=== PATIENT | female | born 1965 | race Caucasian/White ===

== ENCOUNTER 2022-02-12 12:33 | Outpatient (CLI) | payer BC, OTHER | END 2022-02-12 12:34 | disposition home or self-care (01) | LOC: TBSIIMAG 12:33 | PROVIDERS: ATTEND Neurological Surgery | DX: M50.121 Cervical disc disorder at C4-C5 level with radiculopathy (principal); R25.1 Tremor, unspecified | CPT/HCPCS: 70551; 72141 ==